=== PATIENT | female | born 1940 | race Caucasian/White ===

== ENCOUNTER 2018-07-13 10:09 | Emergency (ER) | payer MEDICARE, OTHER ==
[~2018-07-13] VITALS: Ht 160 cm; Wt 60.0 kg
[2018-07-13] MEDS ORDERED: LACTATED RINGERS 1,000 ML IV STA (10:53)
[2018-07-13 11:23] LABS: HEMATOCRIT. 45.8 % (36.0-48.0); MEAN CORPUSCULAR HEMOGLOBIN 30.8 pg (28.0-32.0); MEAN CORPUSCULAR VOLUME 93.9 fL (81.0-99.0); MEAN PLATELET VOLUME 9.4 fl (7.4-10.4); PLATELET 161 x1000/uL (130-400); RED BLOOD CELL COUNT 4.87 mill/uL (4.2-5.4); RED CELL DISTRIBUTION WIDTH 12.9 % (11.6-14.6)
[2018-07-13 11:29] LABS: CHLORIDE 114 mEq/L (98-107)
[2018-07-13 11:47] LABS: PLATELET ESTIMATE NORMAL
[2018-07-13 13:22] VITALS: BP 108/58
== END 2018-07-13 13:20 | disposition home or self-care (01) ==
LOC: ER 10:26
DX: R55 Syncope and collapse (principal); E86.0 Dehydration
CPT/HCPCS: 36415; 71045; 80053; 84484; 85025; 93005; 96360; 99284; J7120